=== PATIENT | female | born 1985 | race Caucasian/White ===

== ENCOUNTER 2016-12-02 08:57 | Emergency (ER) | payer MEDICAID ==
[~2016-12-02] VITALS: Ht 165.1 cm; Wt 71.2 kg
[2016-12-02] MEDS ORDERED: Cyclobenzaprine 10mg Tab ORAL ONE (09:30)
[2016-12-02] MEDS ORDERED: CYCLOBENZAPRINE10 MG ORAL (09:46)
[2016-12-02] MEDS ORDERED: IBUPROFEN600 MG ORAL (09:46)
[2016-12-02 10:06] VITALS: BP 108/67
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
== END 2016-12-02 10:08 | disposition home or self-care (01) ==
LOC: EMR 09:28
DX: S39.012A Strain of muscle, fascia and tendon of lower back, initial encounter (principal); S16.1XXA Strain of muscle, fascia and tendon at neck level, initial encounter; V43.62XA Car passenger injured in collision with other type car in traffic accident, initial encounter; Y92.414 Local residential or business street as the place of occurrence of the external cause; J45.909 Unspecified asthma, uncomplicated
CPT/HCPCS: 99284